=== PATIENT | male | born 1960 | race Two or more races ===

== ENCOUNTER 2019-10-14 13:21 | Outpatient (CLI) | payer MEDICAID ==
[~2019-10-14] VITALS: Ht 165.1 cm; Wt 55.8 kg
--- NOTE | 2019-10-14 15:30 | Consultation ---
DATE OF CONSULTATION: 10/14/2019 CHIEF COMPLAINT: Abdominal pain and weight loss. HISTORY OF PRESENT ILLNESS: This is a 59-year-old male who presented to the hospital complaining of left lower quadrant abdominal pain for about a year, complained of about 10 pounds of weight loss, also epigastric abdominal pain and bloating. No prior history of endoscopy and colonoscopy. PAST MEDICAL HISTORY: Diabetes, history of enlarged prostate, maybe infected requiring surgery. PAST SURGICAL HISTORY: Left hip surgery, prostate surgery. MEDICATIONS: He is on diabetic medication including insulin. FAMILY HISTORY: Significant for diabetes. SOCIAL HISTORY: The patient tobacco about 4 months ago. He drinks socially. ALLERGIES: No known allergies. REVIEW OF SYSTEMS: A 10-point review of systems was performed and pertinent positives in HPI. PHYSICAL EXAMINATION: GENERAL: The patient is well-developed male, no acute distress. HEENT: Normocephalic and atraumatic. Sclerae anicteric. NECK: Supple. No evidence of obvious lymphadenopathy. CARDIOVASCULAR: Regular rate and rhythm. Plus S1, S2. LUNGS: Clear to auscultation bilaterally. ABDOMEN: There is tenderness to palpation in the epigastric area and left lower quadrant. No rebound. No guarding. No peritoneal sign. EXTREMITIES: No cyanosis, no clubbing, no edema. ASSESSMENT AND PLAN: The patient is a 59-year-old male with abdominal pain, weight loss, needs endoscopy and colonoscopy. He never had any of them before. The patient was given instruction for colonoscopy. The prep was explained to him. The risks and benefits of the procedure was explained to him, he agreed. We will plan for when authorization is obtained. José Chavez M.D. DR: Kirsten JOB#: [id number] CC:
[2019-10-15 13:19] VITALS: BP 125/71
[2019-10-15] MEDS ORDERED: ASPIRIN EC81 MG ORAL (13:20)
[2019-10-15] MEDS ORDERED: LANTUS SOL100 UNIT/1 SUBQ (13:20)
[2019-10-15] MEDS ORDERED: LOPERAMIDE2 MG PO (13:42)
[2019-10-15] MEDS ORDERED: ATORVASTATIN CA40 MG ORAL (13:42)
[2019-10-15] MEDS ORDERED: PROSCAR5 MG ORAL (13:42)
[2019-10-15] MEDS ORDERED: PROVENTIL HFA6.7 G1 IH (13:42)
[2019-10-15] MEDS ORDERED: GABAPENTIN100 MG ORAL (13:42)
[2019-10-15] MEDS ORDERED: FLONASE ALLERG9.9 ML NS (13:42)
[2019-10-15] MEDS ORDERED: METFORMIN HCL500 M1 ORAL (13:42)
== END 2019-10-14 15:21 | disposition home or self-care (01) ==
LOC: PAN 13:21
DX: R10.9 Unspecified abdominal pain (principal); R63.4 Abnormal weight loss; E11.9 Type 2 diabetes mellitus without complications; Z87.891 Personal history of nicotine dependence; Z68.20 Body mass index [BMI] 20.0-20.9, adult
CPT/HCPCS: G0463

== ENCOUNTER 2019-12-18 11:18 | Outpatient (CLI) | payer MEDICAID ==
[~2019-12-18 11:18] MED LIST: ASPIRIN EC81 MG ORAL; ATORVASTATIN CA40 MG ORAL; FLONASE ALLERG9.9 ML NS; GABAPENTIN100 MG ORAL; LANTUS SOL100 UNIT/1 SUBQ; LOPERAMIDE2 MG PO; METFORMIN HCL500 M1 ORAL; PROSCAR5 MG ORAL; PROVENTIL HFA6.7 G1 IH
[2019-12-18 12:05] VITALS: BP 100/61
--- NOTE | 2019-12-18 13:20 | General Progress Note ---
Assessment/Plan Assessment/Plan: abd pain wt loss diarrhea DM not much response to imodium add lomotil pending EGD and colonoscopy for next week Subjective ROS Limited/Unobtainable: Yes Allergies: Coded Allergies: No Known Allergies (Unverified , 10/15/19) Objective General Appearance: alert EENT: normal ENT inspection Neck: supple Cardiovascular: normal rate Respiratory/Chest: decreased breath sounds Abdomen: normal bowel sounds, non tender, soft Extremities: non-tender José Chavez MD Dec 18, 2019 13:20
[2019-12-19] MEDS ORDERED: IMODIUM MULTI-1 EACH PO (08:49)
== END 2019-12-18 14:54 | disposition home or self-care (01) ==
LOC: PAN 11:18
DX: R10.9 Unspecified abdominal pain (principal); R63.4 Abnormal weight loss; R19.7 Diarrhea, unspecified; E11.9 Type 2 diabetes mellitus without complications
CPT/HCPCS: 99212

== ENCOUNTER 2020-01-09 12:44 | Outpatient (CLI) | payer MEDICAID, OTHER ==
[~2020-01-09 12:44] MED LIST changes: +IMODIUM MULTI-1 EACH PO
[2020-01-09 12:45] VITALS: BP 74/44
[2020-01-09 12:50] VITALS: BP 67/43
[2020-01-09 12:55] VITALS: BP 66/51
--- NOTE | 2020-01-09 13:14 | General Progress Note ---
Assessment/Plan Assessment/Plan: Assessment/Plan: abd pain wt loss diarrhea DM not much response to imodium and lomotil s/p EGD and colonoscopy hypotensive today will admit to ER for hydration and CT Subjective ROS Limited/Unobtainable: Yes Allergies: Coded Allergies: No Known Allergies (Unverified , 10/15/19) Objective General Appearance: alert EENT: normal ENT inspection Neck: supple Cardiovascular: normal rate Respiratory/Chest: decreased breath sounds Abdomen: normal bowel sounds, non tender, soft Extremities: non-tender José Chavez MD January 09, 2020 13:14
[2020-01-09] MEDS ORDERED: LOMOTIL TABLET1 EACH ORAL (13:50)
== END 2020-01-09 14:44 | disposition home or self-care (01) ==
LOC: PAN 12:44
DX: R10.9 Unspecified abdominal pain (principal); R63.4 Abnormal weight loss; R19.7 Diarrhea, unspecified; E11.9 Type 2 diabetes mellitus without complications; I95.9 Hypotension, unspecified
CPT/HCPCS: 99212

== ENCOUNTER 2020-01-09 13:25 | Emergency (ER) | payer MEDICAID, OTHER ==
[~2020-01-09] VITALS: Ht 165.1 cm; Wt 63.5 kg
[2020-01-09 13:35] VITALS: BP 124/64
[2020-01-09] MEDS ORDERED: LOMOTIL TABLET1 EACH ORAL (13:50)
--- NOTE | 2020-01-09 14:16 | Emergency Room Report ---
History of Present Illness General Chief Complaint: General Complaint Source: Patient Present Illness HPI Disclaimer: Please note that this report is being documented using [employer] technology. This can lead to erroneous entry secondary to incorrect interpretation by the dictating instrument. HPI: 59-year-old male presents for evaluation of hypotension. He was at the outpatient office of his vice president of nursing where he was found to have a systolic blood pressure in the 60s. The patient has been having chronic diarrhea for 2 years and states he felt slightly fatigued at the outpatient visit which is not unusual for him. He currently denies any symptoms of lightheadedness, dizziness, syncope, chest pain, palpitations, shortness of breath. His blood pressure in the emergency department is within normal limits. Got a call from the office of his vice president of nursing who states their BP cuff was malfunctioning. Allergies: Coded Allergies: No Known Allergies (Unverified , 10/15/19) COVID-19 Screening Contact w/high risk pt: No Recent Travel to affected area: No Experienced COVID-19 symptoms?: No COVID-19 Testing performed NON FOOD RECEIVING CLERK: No Nursing Documentation-[facility] Past Medical History: No History, Except For Hx Cardiac Problems: Yes Hx Diabetes: Yes Hx Cancer: No Hx Gastrointestinal Problems: Yes Hx Neurological Problems: No Review of Systems All Other Systems: negative except mentioned in HPI Physical Exam Vital Signs Date Time Temp Pulse Resp B/P (MAP) Pulse Ox O2 Delivery O2 Flow Rate FiO2 01/09/20 13:30 98.2 78 18 124/64 (84) 99 Room Air General: Awake and alert, no acute distress HEENT: NC/AT. EOMI. Resp: Normal work of breathing Skin: Intact. No abrasions, laceration or rash over the exposed skin MSK: Normal tone and bulk. Moving all extremities. No obvious deformity. Neuro: Awake and alert. Mentating appropriately Medical Decision Making Diagnostic Impression: Primary Impression: Encounter for generalized patient complaints ER Course 59-year-old male presents for evaluation of hypotension. No hypotension observed in the emergency department and the patient's vice president of nursing office called stating their BP cuff was malfunctioning. Suspect there was no hypotension today. The patient is complaining of diarrhea which he has had for 2 years and is currently being investigated by gastroenterology team. No indication for emergent labs or imaging at this time. He is otherwise well- appearing no complaints.Will discharge with outpatient follow-up. Last Vital Signs Date Time Temp Pulse Resp B/P (MAP) Pulse Ox O2 Delivery O2 Flow Rate FiO2 01/09/20 13:30 98.2 78 18 124/64 (84) 99 Room Air Disposition: HOME, SELF-CARE Condition: Stable Referrals: José Chavez MD Additional Instructions: Please follow-up with your primary care doctor in the next 1 to 3 days to discuss this emergency department visit and for reevaluation. If you have any new or worsening symptoms please return to the emergency department for reevaluation. Please note that this report is being documented using [employer] technology. This can lead to erroneous entry secondary to incorrect interpretation by the dictating instrument. Christian Remy MD January 09, 2020 14:16
[2020-01-09 14:20] VITALS: BP 132/75
== END 2020-01-09 14:20 | disposition home or self-care (01) ==
LOC: EMR 14:20
DX: Z76.89 Persons encountering health services in other specified circumstances (principal); E11.9 Type 2 diabetes mellitus without complications; I51.9 Heart disease, unspecified
CPT/HCPCS: 99281

== ENCOUNTER 2020-03-23 12:49 | Outpatient (CLI) | payer MEDICAID ==
[~2020-03-23 12:49] MED LIST changes: +LOMOTIL TABLET1 EACH ORAL
[2020-03-23 13:36] VITALS: BP 128/67
[2020-03-23] MEDS ORDERED: LOMOTIL TABLET1 EACH ORAL (13:39)
--- NOTE | 2020-03-23 14:22 | General Progress Note ---
Assessment/Plan Assessment/Plan: diarrhea Wt loss gastritis EGD and colonoscopy reviewed CT reviewed refill lomotil needs MRCP and possible ERCP Subjective ROS Limited/Unobtainable: Yes Allergies: Coded Allergies: No Known Allergies (Unverified , 10/15/19) Objective Last 24 Hour Vital Signs Date Time Temp Pulse Resp B/P (MAP) Pulse Ox O2 Delivery O2 Flow Rate FiO2 03/23/20 13:36 98.4 79 16 128/67 (87) 100 General Appearance: alert EENT: normal ENT inspection Neck: supple Cardiovascular: normal rate Respiratory/Chest: decreased breath sounds Abdomen: normal bowel sounds, non tender, soft Extremities: non-tender José Chavez MD Mar 23, 2020 14:22
== END 2020-03-23 14:49 | disposition home or self-care (01) ==
LOC: PAN 12:49
DX: R19.7 Diarrhea, unspecified (principal); R63.4 Abnormal weight loss; K29.70 Gastritis, unspecified, without bleeding
CPT/HCPCS: 99212

== ENCOUNTER 2020-05-19 08:55 | Outpatient (CLI) | payer MEDICAID ==
[2020-05-19 09:28] VITALS: BP 137/75
--- NOTE | 2020-05-19 15:33 | General Progress Note ---
Subjective ROS Limited/Unobtainable: Yes Allergies: Coded Allergies: No Known Allergies (Unverified , 10/15/19) Objective Last 24 Hour Vital Signs Date Time Temp Pulse Resp B/P (MAP) Pulse Ox O2 Delivery O2 Flow Rate FiO2 05/19/20 09:28 97.5 70 16 137/75 100 General Appearance: alert EENT: normal ENT inspection Neck: supple Cardiovascular: normal rate Respiratory/Chest: decreased breath sounds Abdomen: normal bowel sounds, non tender, soft Extremities: non-tender Assessment/Plan Assessment/Plan: Assessment/Plan Assessment/Plan: diarrhea x 3 years Wt loss gastritis EGD and colonoscopy reviewed CT reviewed MRCP reviewed plan to add Maikershannan RTC if no improvement José Chavez MD May 19, 2020 15:33
[2020-06-01] MEDS ORDERED: VIBERZI100 MG PO (07:37)
== END 2020-05-19 10:55 | disposition home or self-care (01) ==
LOC: PAN 08:55
DX: R19.7 Diarrhea, unspecified (principal); R63.4 Abnormal weight loss; K29.70 Gastritis, unspecified, without bleeding
CPT/HCPCS: 99212

== ENCOUNTER 2020-05-25 13:07 | Outpatient (CLI) | payer MEDICAID ==
--- NOTE | 2020-05-25 14:58 | General Progress Note ---
Subjective ROS Limited/Unobtainable: No Allergies: Coded Allergies: No Known Allergies (Unverified , 10/15/19) Objective General Appearance: alert EENT: normal ENT inspection Neck: supple Cardiovascular: normal rate Respiratory/Chest: decreased breath sounds Abdomen: normal bowel sounds, non tender, soft Extremities: non-tender Assessment/Plan Assessment/Plan: Assessment/Plan Assessment/Plan: diarrhea x 3 years Wt loss gastritis EGD and colonoscopy reviewed CT reviewed MRCP reviewed plan to add Viberzi>>> did work only for 3 days trial of Zenpep RTC if no improvement José Chavez MD May 25, 2020 14:58
[2020-06-01] MEDS ORDERED: VIBERZI100 MG PO (07:37)
== END 2020-05-25 15:07 | disposition home or self-care (01) ==
LOC: PAN 13:07
DX: R19.7 Diarrhea, unspecified (principal); R63.4 Abnormal weight loss; K29.70 Gastritis, unspecified, without bleeding
CPT/HCPCS: 99212